=== PATIENT | female | born 1955 | race Caucasian/White ===

== ENCOUNTER → 2020-06-11 15:25 | Outpatient (CLI) | payer OTHER, SELFPAY ==
[2020-06-11 14:34] VITALS: BMI 32.5
[2020-06-11 16:50] LABS: Absolute Lymphocyte Count 2.09 X10^3/uL (0.83-4.51); Absolute Neutrophil Count 5.9 X10^3/uL (2.0-7.7); Basophil# 0.06 X10^3/uL; Basophil% 0.7 % (0-1); Eosinophil# 0.35 X10^3/uL; Eosinophils% 3.9 % (0-5); Hematocrit 45.7 % (37-47); Hemoglobin 15.8 g/dL (12.0-15.0); Lymphocyte # 2.09 X10^3/ul (4.0); Lymphocyte % 23.2 % (19-41); Mean Corp Hgb Conc 34.6 g/dL (32-36); Mean Corpuscular Hgb 32.2 pg (27.0-32.0); Mean Corpuscular Volume 93.1 fL (81-99); Mean Platelet Vol. 10.2 fl (6.2-12.0); Monocyte% 6.7 % (0-10); NRBC Flagged by Analyzer 0 % (0-5); Neutrophil # 5.87 X10^3/uL (2.7-7.7); Neutrophil % 65.3 % (47-70); Platelet Count 336 K/mm3 (150-450); RBC Distribution Width CV 12.7 % (11.6-14.6); RBC Distribution Width SD 43.5 fl (35.1-43.9); Red Blood Count 4.91 M/mm3 (4.2-5.4)
[2020-06-11 17:13] LABS: AST(SGOT) 22 U/L (15-37); Alanine Aminotransfer ALT/SGPT 38 U/L (13-56); Albumin, Serum 3.8 g/dL (3.2-5.0); Alkaline Phosphatase 82 U/L (45-117); Anion Gap 7 (5-15); BUN 12 mg/dL (7-18); BUN/Creat Ratio 14.2 RATIO (10-20); Calcium,Total 9.4 mg/dL (8.5-10.1); Chloride 105 mmol/L (98-107); Cholesterol 129 mg/dL (200); Creatinine, Serum 0.85 mg/dL (0.55-1.02); EST Glomerular Filtration Rate 72 mL/min (>60); Est Glom Filt Rate - Afr Amer 87 mL/min (>60); Globulin 3.8 g/dL (2.2-4.2); Glucose 87 mg/dL (74-106); High Density Lipoprotein 69 mg/dL; Potassium 3.8 mmol/L (3.5-5.1); Protein, Total 7.6 g/dL (6.4-8.2); Sodium Level 142 mmol/L (136-145); Triglycerides 81 mg/dL; Very Low Density Lipoprotein 16 mg/dL (5-40)
== END ==
PROVIDERS: PCP Internal Medicine; Referring Provider Internal Medicine; Visit Provider Internal Medicine
DX: E78.5 Hyperlipidemia, unspecified (principal); I10 Essential (primary) hypertension; E03.9 Hypothyroidism, unspecified
CPT/HCPCS: 36415; 80053; 80061; 84443; 85025

== ENCOUNTER → 2022-09-01 | Outpatient (CLI) | payer BC, MEDICARE, SELFPAY ==
[2022-09-01 12:39] LABS: Absolute Lymphocyte Count 1.18 X10^3/uL (0.83-4.51); Absolute Neutrophil Count 5.3 X10^3/uL (2.0-7.7); Basophil# 0.03 X10^3/uL; Basophil% 0.4 % (0-1); Eosinophil# 0.21 X10^3/uL; Eosinophils% 2.9 % (0-5); Hematocrit 49.9 % (37-47); Hemoglobin 16.1 g/dL (12.0-15.0); Lymphocyte # 1.18 X10^3/ul (0.83-4.51); Lymphocyte % 16.4 % (19-41); Mean Corp Hgb Conc 32.3 g/dL (32-36); Mean Corpuscular Hgb 31.1 pg (27.0-32.0); Mean Corpuscular Volume 96.3 fL (81-99); Mean Platelet Vol. 10.7 fl (6.2-12.0); Monocyte# 0.44 X10^3/uL; Monocyte% 6.1 % (0-10); NRBC Flagged by Analyzer 0 % (0-5); Neutrophil # 5.31 X10^3/uL (2.7-7.7); Neutrophil % 73.9 % (47-70); Platelet Count 328 K/mm3 (150-450); RBC Distribution Width CV 12.8 % (11.6-14.6); RBC Distribution Width SD 45.8 fl (35.1-43.9); Red Blood Count 5.18 M/mm3 (4.2-5.4); White Blood Count 7.2 K/mm3 (4.4-11.0)
[2022-09-01 13:11] LABS: AST(SGOT) 22 U/L (15-37); Alanine Aminotransfer ALT/SGPT 30 U/L (13-56); Albumin, Serum 3.8 g/dL (3.2-5.0); Alkaline Phosphatase 84 U/L (45-117); Anion Gap 7 (5-15); BUN 13 mg/dL (7-18); Calcium,Total 9.8 mg/dL (8.5-10.1); Chloride 105 mmol/L (98-107); Cholesterol 191 mg/dL (200); Creatinine, Serum 0.81 mg/dL (0.55-1.02); EST Glomerular Filtration Rate 75 mL/min (>60); Est Glom Filt Rate - Afr Amer 91 mL/min (>60); Glucose 104 mg/dL (74-106); High Density Lipoprotein 66 mg/dL; Potassium 3.9 mmol/L (3.5-5.1); Protein, Total 7.8 g/dL (6.4-8.2); Sodium Level 140 mmol/L (136-145); Thyroid Stim Hormone (TSH) 2.43 uIU/mL (0.358-3.74); Triglycerides 131 mg/dL; Very Low Density Lipoprotein 26 mg/dL (5-40)
== END | disposition home or self-care (01) ==
PROVIDERS: PCP Internal Medicine; Referring Provider Internal Medicine; Visit Provider Internal Medicine
DX: I10 Essential (primary) hypertension (principal); E03.9 Hypothyroidism, unspecified; M81.0 Age-related osteoporosis without current pathological fracture
CPT/HCPCS: 36415; 80053; 80061; 82306; 84443; 85025

== ENCOUNTER → 2022-11-14 | Outpatient (CLI) | payer BC, MEDICARE, SELFPAY ==
--- NOTE | 2022-11-14 16:16 | BI_ITS ---
MAMMOGRAPHY - BILATERAL SCREENING REASON FOR EXAM: Female, 67 years old. Routine annual screening examination. PERTINENT HISTORY: Aunts with breast cancer. TECHNIQUE: Digital bilateral breast alisha (3D mammographic acquisition) in the CC and MLO projections. 2-D mediolateral oblique (MLO) and craniocaudad (CC) views of both breasts were obtained. CAD: Full Field Digital Mammography with Computer Added Detection was performed. COMPARISON: Comparison is made with prior outside examination dated November 28, 2018. FINDINGS: Breast Composition: The breasts are heterogeneously dense, which may obscure small masses. There are no dominant masses or suspicious calcifications. Stable densely calcified nodule in the medial retroareolar region of the left breast. No other significant abnormalities are identified. There has been no significant change since the prior study. BI/SCRN MAMM (CAD)W/ALISHA BILAT IMPRESSION: Stable bilateral screening mammogram. Yearly follow-up mammogram recommended. (A) ASSESSMENT CATEGORY: BIRADS Category 2: Benign. A letter regarding these results will be sent to the patient by the facility within 30 days. Approximately 10% of breast cancers are not detected by mammography. A normal mammogram should not delay biopsy of a clinically suspicious abnormality. [id number] Electronically Signed: Dixon Kitchen MD at 9:15 EDT ,
== END | disposition home or self-care (01) ==
LOC: OPBI 16:14
PROVIDERS: PCP Internal Medicine; Referring Provider Internal Medicine; Visit Provider Internal Medicine
DX: Z12.31 Encounter for screening mammogram for malignant neoplasm of breast (principal)
CPT/HCPCS: 77063; 77067

== ENCOUNTER → 2023-01-24 | Outpatient (CLI) | payer MEDICARE, OTHER, SELFPAY ==
[2023-01-24 15:37] LABS: ALB/GLOB Ratio 1.1 RATIO (0.9-2.4); AST(SGOT) 21 U/L (15-37); Alanine Aminotransfer ALT/SGPT 26 U/L (13-56); Albumin, Serum 3.7 g/dL (3.2-5.0); Alkaline Phosphatase 75 U/L (45-117); Anion Gap 10 (5-15); BUN 9 mg/dL (7-18); BUN/Creat Ratio 11.6 RATIO (10-20); Chloride 105 mmol/L (98-107); Creatinine, Serum 0.78 mg/dL (0.55-1.02); EST Glomerular Filtration Rate 79 mL/min (>60); Est Glom Filt Rate - Afr Amer 96 mL/min (>60); Globulin 3.5 g/dL (2.2-4.2); Glucose 92 mg/dL (74-106); Potassium 3.6 mmol/L (3.5-5.1); Protein, Total 7.2 g/dL (6.4-8.2); Sodium Level 141 mmol/L (136-145); Thyroid Stim Hormone (TSH) 3.36 uIU/mL (0.358-3.74)
== END | disposition home or self-care (01) ==
LOC: BIMLAB 13:54
PROVIDERS: PCP Internal Medicine; Visit Provider Internal Medicine
DX: I10 Essential (primary) hypertension (principal); E03.9 Hypothyroidism, unspecified
CPT/HCPCS: 36415; 80053; 84443

== ENCOUNTER → 2023-10-03 | Outpatient (CLI) | payer MEDICARE, OTHER, SELFPAY ==
[2023-10-03 14:53] LABS: Absolute Lymphocyte Count 1.51 X10^3/uL (0.83-4.51); Absolute Neutrophil Count 5.1 X10^3/uL (2.0-7.7); Basophil# 0.05 X10^3/uL; Basophil% 0.7 % (0-1); Eosinophil# 0.42 X10^3/uL; Eosinophils% 5.5 % (0-5); Hematocrit 46.7 % (37-47); Hemoglobin 15.5 g/dL (12.0-15.0); Lymphocyte # 1.51 X10^3/ul (0.83-4.51); Lymphocyte % 19.9 % (19-41); Mean Corp Hgb Conc 33.2 g/dL (32-36); Mean Corpuscular Hgb 31.6 pg (27.0-32.0); Mean Corpuscular Volume 95.3 fL (81-99); Mean Platelet Vol. 10.2 fl (6.2-12.0); Monocyte# 0.46 X10^3/uL; Monocyte% 6.1 % (0-10); NRBC Flagged by Analyzer 0 % (0-5); Neutrophil # 5.11 X10^3/uL (2.7-7.7); Neutrophil % 67.5 % (47-70); Platelet Count 280 K/mm3 (150-450); RBC Distribution Width CV 12.8 % (11.6-14.6); RBC Distribution Width SD 44.7 fl (35.1-43.9); White Blood Count 7.6 K/mm3 (4.4-11.0)
[2023-10-03 17:01] LABS: ALB/GLOB Ratio 1.1 RATIO (0.9-2.4); AST(SGOT) 28 U/L (15-37); Alanine Aminotransfer ALT/SGPT 32 U/L (13-56); Albumin, Serum 3.8 g/dL (3.2-5.0); Alkaline Phosphatase 74 U/L (45-117); Anion Gap 6 (5-15); BUN 15 mg/dL (7-18); BUN/Creat Ratio 15.5 RATIO (10-20); Calcium,Total 9.1 mg/dL (8.5-10.1); Chloride 106 mmol/L (98-107); Cholesterol 148 mg/dL (200); Creatinine, Serum 0.96 mg/dL (0.55-1.02); EST Glomerular Filtration Rate 61 mL/min (>60); Est Glom Filt Rate - Afr Amer 74 mL/min (>60); Globulin 3.6 g/dL (2.2-4.2); Glucose 93 mg/dL (74-106); High Density Lipoprotein 78 mg/dL; Potassium 4.3 mmol/L (3.5-5.1); Protein, Total 7.4 g/dL (6.4-8.2); Sodium Level 140 mmol/L (136-145); Triglycerides 104 mg/dL; Very Low Density Lipoprotein 21 mg/dL (5-40)
== END | disposition home or self-care (01) ==
LOC: BIMLAB 13:01
PROVIDERS: PCP Internal Medicine; Visit Provider Internal Medicine
DX: I10 Essential (primary) hypertension (principal); E03.9 Hypothyroidism, unspecified; E78.5 Hyperlipidemia, unspecified
CPT/HCPCS: 36415; 80053; 80061; 84443; 85025

== ENCOUNTER → 2024-02-11 | Outpatient (CLI) | payer MEDICARE, OTHER, SELFPAY ==
[2024-02-11 12:18] LABS: Vitamin D,25 Hydroxy 38.4 ng/mL
[2024-02-11 12:32] LABS: Anion Gap 7 (5-15); BUN 11 mg/dL (7-18); BUN/Creat Ratio 12.4 RATIO (10-20); Calcium,Total 9.5 mg/dL (8.5-10.1); Chloride 106 mmol/L (98-107); Creatinine, Serum 0.88 mg/dL (0.55-1.02); EST Glomerular Filtration Rate 68 mL/min (>60); Est Glom Filt Rate - Afr Amer 82 mL/min (>60); Glucose 103 mg/dL (74-106); Potassium 4.1 mmol/L (3.5-5.1); Sodium Level 141 mmol/L (136-145); Thyroid Stim Hormone (TSH) 5.21 uIU/mL (0.358-3.74)
== END | disposition home or self-care (01) ==
LOC: BIMLAB 08:32
PROVIDERS: PCP Internal Medicine; Referring Provider Internal Medicine; Visit Provider Internal Medicine
DX: E03.9 Hypothyroidism, unspecified (principal); I10 Essential (primary) hypertension; M81.0 Age-related osteoporosis without current pathological fracture
CPT/HCPCS: 36415; 80048; 82306; 84443

== ENCOUNTER → 2024-02-27 | Outpatient (CLI) | payer MEDICARE, OTHER, SELFPAY ==
--- NOTE | 2024-02-27 14:49 | BI_ITS ---
MAMMOGRAPHY - BILATERAL SCREENING REASON FOR EXAM: Female, 68 years old. Routine annual screening examination. PERTINENT HISTORY: Aunts with breast cancer. TECHNIQUE: Digital bilateral breast alisha (3D mammographic acquisition) in the CC and MLO projections. 2-D mediolateral oblique (MLO) and craniocaudad (CC) views of both breasts were obtained. CAD: Full Field Digital Mammography with Computer Added Detection was performed. COMPARISON: Comparison is made with prior study of November 14, 2022. FINDINGS: Breast Composition: The breasts are heterogeneously dense, which may obscure small masses. There are no dominant masses or suspicious calcifications. Stable densely calcified nodule in the medial retroareolar region of the left breast. No other significant abnormalities are identified. There has been no significant change since the prior study. BI/SCRN MAMM (CAD)W/ALISHA BILAT IMPRESSION: Stable bilateral screening mammogram. Yearly follow-up mammogram recommended. (A) ASSESSMENT CATEGORY: BIRADS Category 2: Benign. A letter regarding these results will be sent to the patient by the facility within 30 days. Approximately 10% of breast cancers are not detected by mammography. A normal mammogram should not delay biopsy of a clinically suspicious abnormality. [id number] Electronically Signed: Dixon Kitchen MD at 15:36 EDT ,
--- NOTE | 2024-02-27 14:52 | BD_ITS ---
STUDY: DUAL ENERGY X-RAY ABSORPTIOMETRY / DXA REASON FOR EXAM: Female, 68 years old. Osteoporosis TECHNIQUE: Bone Mineral Density (BMD) measurements of lumbar spine and left hip were obtained. COMPARISON: None. FINDINGS: Lumbar Spine (L1-L4): g/cm2 (0.796) / T-score (-2.6) / Z-score (-0.6) Findings are suggestive of osteoporosis with a high fracture risk. Left Femur Total: g/cm2 (0.810) / T-score (-1.1) / Z-score (0.2) Left Femoral Neck: g/cm2 (0.644) / T-score (-1.8) / Z-score (-0.3) BD/Dexa Bone Density Study IMPRESSION: The patient is considered osteoporotic as outlined below according to World Per Organization (WHO) criteria with a high fracture risk. Reference Information: The T-score is the number of standard deviations above or below the standard which is normal for young adults at their peak bone mineral density. The World Health Organization (WHO) interprets the T-scores as follows: Above -1 Normal bone density Between -1 and -2.5 Osteopenia Equal to / or below -2.5 Osteoporosis As a practical clinical guideline, osteopenia may be graded as follows: Mild -1 through -1.5 Moderate -1.6 through -2.0 Severe -2.1 through -2.4 The Z-score is the number of standard deviations above or below age-matched controls. A Z-score of less than -1.5 would be considered abnormal. References: 1. NIH Osteoporosis and Related Bone Diseases www osteo.org 2. International Society for Clinical Densitometry www iscd.org 3. National Osteoporosis Foundation www nof.org Electronically Signed: Dixon Kitchen MD at 8:25 EDT ,
== END | disposition home or self-care (01) ==
LOC: OPBD 14:49
PROVIDERS: PCP Internal Medicine; Referring Provider Internal Medicine; Visit Provider Internal Medicine
DX: Z12.31 Encounter for screening mammogram for malignant neoplasm of breast (principal); M81.0 Age-related osteoporosis without current pathological fracture
CPT/HCPCS: 77063; 77067; 77080

== ENCOUNTER → 2024-04-25 | Outpatient (CLI) | payer MEDICARE, OTHER, MEDICAID, SELFPAY ==
--- OUTSIDE RECORDS SUMMARY | 2024-04-25 11:52 | XMS RPT_ITS | CCD ---
Author Organization [facility] InformFormerly [facility] Care Team Providers Care Stamps Or Coins Salesperson Name Role Phone Shanelle Horvath Unavailable Unavailable Mariangel Brewer III Unavailable Unavailable Mariangel Brweer Unavailable Unavailable Jack Faith Unavailable Unavailable SHADY GRECO Primary Care Unavailable TAWANDA ROSS, KELBY Alcantar Attending Unavailabl e Medications Completed/Discontinued Medications Medication Drug Class(es) Dates Sig (Normalized) Sig (Original) 200 actuat albuterol 0.09 mg/actuat metered dose inhaler (1 source) beta2-Adrenergic Agonist Start: 6 take 1-2 puff(s) by inhalation every four to six hours as needed Ventolin HFA 108 (90 Base) MCG/ACT Inhalation Aerosol Solution INHALE 1 TO 2 PUFFS EVERY 4 TO 6 HOURS NEEDED. Quantity: 1 Refills: 0 Shanelle Horvath MD Start : 07-Dec-2015 Active 18 GM Inhaler Centrum TABS (1 source) Vitamin C Centrum TABS Refills: 0 Active aspirin 81 mg oral tablet (1 source) Platelet Aggregation Inhibitor, Nonsteroidal Anti-inflammatory Drug Aspirin 81 MG TABS Refills: 0 Active benazepril hydrochloride 10 mg / hydroCHLOROthiazide 12.5 mg oral tablet (1 source) Thiazide Diuretic, Angiotensin Converting Enzyme Inhibitor Start: 6 take 1 tablet by mouth once daily Benazepril-hydro CHLOROthiazide 10-12.5 MG Oral Tablet TAKE 1 TABLET DAILY. Quantity: 90 Refills: 1 Raux III Mariangel BABNI Start : 18-Jan-2016 Active Calcium (1 source) Phosphate Binder, Calcium Calcium TABS Refills: 0 Active cycloSPORINE 0.5 mg/ml ophthalmic suspension (1 source) Calcineurin Inhibitor Immunosuppressant Start: 7 Restasis 0.05 % Ophthalmic Emulsion Quantity: 60 Refills: 0 Start : 05-Sep-2016 Active 120 actuat fluticasone propionate 0.11 mg/actuat metered dose inhaler (1 source) Corticosteroid Start: 6 Flovent HFA 110 MCG/ACT Inhalation Aerosol Quantity: 12 Refills: 0 Start : 14-Dec-2015 Active Tirosint CAPS (1 source) l-Thyroxine Tirosint CAPS Refills: 0 Active rosuvastatin calcium 10 mg oral tablet (1 source) HMG-CoA Reductase Inhibitor Start: 6 take 1 tablet by mouth at bedtime Rosuvastatin Calcium 10 MG Oral Tablet TAKE 1 TABLET AT BEDTIME. Quantity: 90 Refills: 1 Mariangel Brewer III, DO Start : 19-Jan-2016 Active Problems Active Problems Problem Classification Problem Date Documented Da te Episodic/Chronic Disorders of lipid metabolism (1 source) Hyperlipidemia; Translations: [Hyperlipidemia] Chronic Essential hypertension (1 source) Hypertensive disorder; Translations: [Hypertension] Chronic Genitourinary congenital anomalies (1 source) H/O: urinary anomaly; Translations: [History of urinary frequency] Episodic Genitourinary symptoms and ill-defined conditions (2 sources) Incontinence; Translations: [Urge incontinence of urine] Chronic Genitourinary symptoms and ill-defined conditions (3 sources) Urgent desire to urinate; Translations: [Increased frequency of urination] Episodic Malaise and fatigue (1 source) Fatigue; Translations: [Fatigue] Episodic Nutritional deficiencies (1 source) Vitamin D deficiency; Translations: [Vitamin D deficiency] Chronic Other bone disease and musculoskeletal deformities (1 source) Disorder of bone; Translations: [Disorder of bone density and structure, unspecified] Episodic Other diseases of bladder and urethra (1 source) Other neuromuscular dysfunction of bladder; 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, 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 Other diseases of bladder and urethra (1 source) Urethral hypermobility; 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] Episodic Other diseases of bladder and urethra (1 source) Urethral instability; Translations: [History of Urethral instability] Episodic Other upper respiratory infections (1 source) Chronic sinusitis; Translations: [Sinobronchitis] Chronic Thyroid disorders (1 source) Hypothyroidism; Translations: [History of Hypothyroidism, adult] Chronic Past or Other Problems Problem Classification Problem Date Documented Da te Episodic/Chronic Unclassified (1 source) Patient encounter status; Translations: [Visit for screening mammogram] NEGATED: Highlighted row has not occurred!Residual codes; unclassified (2 sources) Disease Episodic Results Test Name Value Interpretation Reference Range Facil ity XR FOOT MINIMUM 3 VIEWS LEFT on 01-08-2024 XR FOOT MINIMUM 3 VIEWS LEFT ORIGINAL EXAMINATION: THREE XRAY VIEWS OF THE LEFT FOOT 01/08/2024 11:42 am COMPARISON: None. HISTORY: ORDERING SYSTEM PROVIDED HISTORY: Reason for Exam: evaluation for pain/injury FINDINGS: There is no evidence of acute fracture. There is normal alignment of the tarsometatarsal joints. No acute joint abnormality. No focal osseous lesion. No focal soft tissue abnormality. IMPRESSION: No acute osseous abnormality. Interpreted by: Nleson Leon DO Preliminary Report By: Nelson Leon DO Electronically signed By Nelson Leon DO Dictated Date: 01/08/2024 11:51:36 AM Prelim Date: 01/08/2024 11:52:37 AM Sign Date: 01/08/2024 11:52:37 AM Ordering Provider: KELBY NEFF [facility] ([place]) CBCon 12-10-2019 Erythrocyte distribution width (RBC) [Ratio] 12.5 % Normal 11.5 - 14.5 [facility] Comment on above: Performed By: #### C BC #### [address] [address] Hematocrit (Bld) [Volume fraction] 45.8 % Normal 36.0 - 46.0 [facility] Comment on above: Performed By: #### C BC #### [address] [address] Hemoglobin (Bld) [Mass/Vol] 15.0 g/dL Normal 12.0 - 16.0 [facility] Comment on above: Performed By: #### C BC #### [address] [address] MCHC (RBC) [Mass/Vol] 32.8 g/dL Normal 32.0 - 36.0 [facility] Comment on above: Performed By: #### C BC #### [address] [address] MCV (RBC) [Entitic vol] 95 fL Normal 80 - 100 [facility] Comment on above: Performed By: #### C BC #### [address] [address] Platelets (Bld) [#/Vol] 322 10*3/uL Normal 150 - 450 [facility] Comment on above: Performed By: #### C BC #### [address] [address] RBC (Bld) [#/Vol] 4.83 x10E12/L Normal 4.00 - 5.20 [facility] Comment on above: Performed By: #### C BC #### [address] [address] WBC (Bld) [#/Vol] 11.2 10*3/uL Normal 4.4 - 11.3 [facility] Comment on above: Performed By: #### C BC #### [place] [address] COMPREHENSIVE PANELon 2019 Albumin [Mass/Vol] 4.1 g/dL Normal 3.4 - 5.0 [facility] Comment on above: Performed By: #### C MP #### [address] [address] ALP [Catalytic activity/Vol] 63 U/L Normal 33 - 136 [facility] Comment on above: Performed By: #### C MP #### [place] [address] ALT [Catalytic activity/Vol] 25 U/L Normal 7 - 45 [facility] Comment on above: Result Comment: Sophie ents treated with Sulfasalazine may generate falsely decreased results for ALT. Performed By: #### C MP #### [address] [address] Anion gap [Moles/Vol] 14 mmol/L Normal 10 - 20 [facility] Comment on above: Performed By: #### C MP #### [address] [address] AST [Catalytic activity/Vol] 24 U/L Normal 9 - 39 [facility] Comment on above: Performed By: #### C MP #### [address] [address] Bilirubin [Mass/Vol] 0.4 mg/dL Normal 0.0 - 1.2 [facility] Comment on above: Performed By: #### C MP #### [address] [address] Calcium [Mass/Vol] 9.3 mg/dL Normal 8.6 - 10.3 [facility] Comment on above: Performed By: #### C MP #### [address] [address] Chloride [Moles/Vol] 103 mmol/L Normal 98 - 107 [facility] Comment on above: Performed By: #### C MP #### [address] [address] Creatinine [Mass/Vol] 0.77 mg/dL Normal 0.50 - 1.05 [facility] Comment on above: Performed By: #### C MP #### [address] [address] GFR- AM. >60 Normal >60 [facility] Comment on above: Result Comment: CALC ULATIONS OF ESTIMATED GFR ARE PERFORMED USING THE MDRD STUDY EQUATION FOR THE IDMS-TRACEABLE CREATININE METHODS. CLIN CHEM 2007;53:766-72 Performed By: #### C MP #### [address] [address] GFR-NON AM. >60 Normal >60 [facility] Comment on above: Performed By: #### C MP #### [address] [address] Glucose [Mass/Vol] 85 mg/dL Normal 74 - 99 [facility] Comment on above: Performed By: #### C MP #### [address] [address] HCO3 (Bld) [Moles/Vol] 28 mmol/L Normal 21 - 32 [facility] Comment on above: Performed By: #### C MP #### [address] [address] Potassium [Moles/Vol] 4.0 mmol/L Normal 3.5 - 5.3 [facility] Comment on above: Performed By: #### C MP #### [address] [address] Protein [Mass/Vol] 6.6 g/dL Normal 6.4 - 8.2 [facility] Comment on above: Performed By: #### C MP #### [address] [address] Sodium [Moles/Vol] 141 mmol/L Normal 136 - 145 [facility] Comment on above: Performed By: #### C MP #### [address] [address] Urea nitrogen [Mass/Vol] 11 mg/dL Normal 6 - 23 [facility] Comment on above: Performed By: #### C MP #### [address] [address] [facility] 12-10-2019 Cholesterol [Mass/Vol] 134 mg/dL 0 - 199 [facility] Work Phone: Comment on above: . AGE DESIRABLE BORD LORI HIGH HIGH 0-19 Y 0 - 169 170 - 199 >/= 200 20-24 Y 0 - 189 190 - 224 >/= 225 >24 Y 0 - 199 200 - 239 >/= 240 All ranges are based on fasting samples. Specific therapeutic targets will vary based on patient-specific cardiac risk.. Pediatric guidelines reference:Pediatrics 2011, 128(S5). Adult guidelines reference: NCEP ATPIII Guidelines, MILAGROS 2001, 258:2486-97. Venipuncture immediately after or during the administration of Metamizole may lead to falsely low results. Testing should be performed immediately prior to Metamizole dosing. Cholesterol in HDL [Mass/Vol] 57.2 mg/dL [facility] Work Phone: Comment on above: . AGE VERY LOW LOW N ORMAL HIGH 0-19 Y < 35 < 40 40-45 ---- 20- 24 Y ---- < 40 >45 ---- >24 Y ---- < 40 40-60 >60. Hematologyon 12-10-2019 Hematocrit (Bld) [Volume fraction] 45.8 % See Below [facility] Work Phone: Comment on above: Reference Range: 36. 0 - 46.0 Hemoglobin (Bld) [Mass/Vol] 15.0 g/dL See Below [facility] Work Phone: Comment on above: Reference Range: 12. 0 - 16.0 MCV (RBC) [Entitic vol] 95 fL 80 - 100 [facility] Work Phone: Platelets (Bld) [#/Vol] 322 {x10E9/L} 150 - 450 [facility] Work Phone: RBC (Bld) [#/Vol] 4.83 {x10E12/L} See Below [facility] Work Phone: Comment on above: Reference Range: 4.0 0 - 5.20 WBC (Bld) [#/Vol] 11.2 {x10E9/L} 4.4 - 11.3 [facility] Work Phone: LIPID PANEL NON-FASTINGon Cholesterol [Mass/Vol] 134 mg/dL Normal 0 - 199 [facility] Comment on above: Result Comment: . AGE DESIRABLE BORDERLINE HIGH HIGH 0-19 Y 0 - 169 170 - 199 >/= 200 20-24 Y 0 - 189 190 - 224 >/= 225 >24 Y 0 - 199 200 - 239 >/= 240 All ranges are based on fasting samples. Specific therapeutic targets will vary based on patient-specific cardiac risk. . Pediatric guidelines reference:Pediatrics 2011, 128(S5). Adult guidelines reference: NCEP ATPIII Guidelines, MILAGROS 2001, 258:2486-97 . Venipuncture immediately after or during the administration of Metamizole may lead to falsely low results. Testing should be performed immediately prior to Metamizole dosing. Performed By: #### L IPIN #### [address] [address] Cholesterol in HDL [Mass/Vol] 57.2 mg/dL Normal [facility] Comment on above: Result Comment: . AGE VERY LOW LOW NORMAL HIGH 0-19 Y < 35 < 40 40-45 ---- 20-24 Y ---- < 40 >45 ---- >24 Y ---- < 40 40-60 >60 . Performed By: #### L IPIN #### [address] [address] Cholesterol.total/C holesterol in HDL [Mass ratio] 2.3 {ratio} Normal [facility] Comment on above: Result Comment: REF VALUES DESIRABLE < 3.4 HIGH RISK > 5.0 Performed By: #### L IPIN #### [address] [address] NON-HDL CHOLESTEROL 77 mg/dL Normal [facility] Comment on above: Result Comment: AGE DESIRABLE BORDERLINE HIGH HIGH VERY HIGH 0-19 Y 0 - 119 120 - 144 >/= 145 >/= 160 20-24 Y 0 - 149 150 - 189 >/= 190 ---- >24 Y 30 MG/DL ABOVE LDL CHOLESTEROL GOAL . Performed By: #### L IPIN #### [address] [address] Metabolic Panelon 12-10-2019 ALP [Catalytic activity/Vol] 63 U/L 33 - 136 [facility] Work Phone: Anion gap [Moles/Vol] 14 mmol/L 10 - 20 [facility] Work Phone: Bilirubin [Mass/Vol] 0.4 mg/dL 0.0 - 1.2 [facility] Work Phone: Calcium [Mass/Vol] 9.3 mg/dL 8.6 - 10.3 [facility] Work Phone: Chloride [Moles/Vol] 103 mmol/L 98 - 107 [facility] Work Phone: CO2 [Moles/Vol] 28 mmol/L 21 - 32 [facility] Work Phone: Creatinine [Mass/Vol] 0.77 mg/dL See Below [facility] Work Phone: Comment on above: Reference Range: 0.5 0 - 1.05 Glucose [Mass/Vol] 85 mg/dL 74 - 99 [facility] Work Phone: Potassium [Moles/Vol] 4.0 mmol/L 3.5 - 5.3 [facility] Work Phone: Protein [Mass/Vol] 6.6 g/dL 6.4 - 8.2 [facility] Work Phone: Sodium [Moles/Vol] 141 mmol/L 136 - 145 [facility] Work Phone: Urea nitrogen [Mass/Vol] 11 mg/dL 6 - 23 [facility] Work Phone: Otheron 12-10-2019 Albumin BCP dye [Mass/Vol] 4.1 g/dL 3.4 - 5.0 [facility] Work Phone: ALT With P-5'-P [Catalytic activity/Vol] 25 U/L 7 - 45 [facility] Work Phone: Comment on above: Patients treated wit h Sulfasalazine may generate falsely decreased results for ALT. AST With P-5'-P [Catalytic activity/Vol] 24 U/L 9 - 39 [facility] Work Phone: Cholesterol non HDL [Mass/Vol] 77 mg/dL [facility] Work Phone: Comment on above: AGE DESIRABLE BORDER LINE HIGH HIGH VERY HIGH 0-19 Y 0 - 119 120 - 144 >/= 145 >/= 160 20-24 Y 0 - 149 150 - 189 >/= 190 ---- >24 Y 30 MG/DL ABOVE LDL CHOLESTEROL GOAL. Cholesterol.total/C holesterol in HDL [Mass ratio] 2.3 {ratio} [facility] Work Phone: Comment on above: REF VALUESDESIRABLE < 3.4HIGH RISK > 5.0 Erythrocyte distribution width (RBC) [Ratio] 12.5 % See Below [facility] Work Phone: Comment on above: Reference Range: 11. 5 - 14.5 MCHC (RBC) [Mass/Vol] 32.8 g/dL See Below [facility] Work Phone: Comment on above: Reference Range: 32. 0 - 36.0 >60 >60 [facility] Work Phone: Comment on above: CALCULATIONS OF DORITA MATED GFR ARE PERFORMED USING THE MDRD STUDY EQUATION FOR THE IDMS-TRACEABLE CREATININE METHODS. CLIN CHEM 2007;53:766-72 VITAMIN D, 25-HYDROXYon VITAMIN D, 25-HYDROXY 57 ng/mL Normal [facility] Comment on above: Result Comment: . DEFICIENCY: < 20 NG/ML INSUFFICIENCY: 20-29 NG/ML SUFFICIENCY: 30-100 NG/ML THIS ASSAY ACCURATELY QUANTIFIES THE SUM OF VITAMIN D3, 25-HYDROXY AND VIT D2,25-HYDROXY. Performed By: #### V TDOH #### [address] [address] Vitamin D 25-Hydroxyon 12-09 Calcidiol [Mass/Vol] 57 ng/mL [facility] Work Phone: Comment on above: .DEFICIENCY: < 20 NG /MLINSUFFICIENCY: 20-29 NG/MLSUFFICIENCY: 30-100 NG/MLTHIS ASSAY ACCURATELY QUANTIFIES THE SUM OFVITAMIN D3, 25-HYDROXY AND VIT D2,25-HYDROXY. BMPon 03-06-2019 Anion gap [Moles/Vol] 13.0 mmol/L Normal 5.0-19.0 [facility] [place] [place] Bun/CretRatio 16.2 Normal [facility] [place] [place] Calcium [Mass/Vol] 9.2 mg/dL Normal 8.1-10.1 [facility] Chloride [Moles/Vol] 100 mmol/L Normal 98-107 [facility] [place] [place] CO2 [Moles/Vol] 24 mmol/L Normal 22-32 [facility] [place] [place] Creatinine [Mass/Vol] 0.74 mg/dL Normal 0.60-1.30 [facility] [place] [place] Glucose [Mass/Vol] 107 mg/dL High 70-100 [facility] Osmolality-Calc 274 mOsm/kg Normal [facility] [place] [place] Potassium [Moles/Vol] 4.0 mmol/L Normal 3.4-5.1 [facility] [place] [place] Sodium [Moles/Vol] 137 mmol/L Normal 136-144 [facility] Urea nitrogen [Mass/Vol] 12 mg/dL Normal 8-26 [facility] [place] [place] CBCon 03-06-2019 Erythrocyte distribution width (RBC) [Ratio] 13.3 % Normal 11.4-16.0 [facility] [place] [place] Hematocrit (Bld) [Volume fraction] 47.0 % High 34.7-44.9 [facility] [place] [place] Hemoglobin (Bld) [Mass/Vol] 16.1 g/dL High 11.3-15.6 [facility] [place] [place] MCH (RBC) [Entitic mass] 32.0 pg Normal 26.5-33.0 [facility] [place] [place] MCHC (RBC) [Mass/Vol] 34.3 g/dL Normal 32.6-36.0 [facility] [place] [place] MCV (RBC) [Entitic vol] 93.2 fL Normal 80.0-100.0 [facility] [place] [place] Mean Plt Vol 7.9 fL Normal 7.2-10.3 [facility] [place] [place] Platelets (Bld) [#/Vol] 346 10*3/uL Normal 144-400 [facility] [place] [place] RBC (Bld) [#/Vol] 5.05 x10E12/L Normal 3.78-5.45 [facility] WBC (Bld) [#/Vol] 8.1 10*3/uL Normal 3.5-11.5 [facility] LDL Calculatedon 03-06-2019 Cholesterol in LDL [Mass/Vol] 44 mg/dL Normal [facility] [place] [place] Comment on above: Result Comment: Calculated LDL is unreliable when Triglyceride result is greater than 400. SGOTon 03-06-2019 AST [Catalytic activity/Vol] 25 U/L Normal 15-41 [facility] [place] [place] SGPTon 03-06-2019 ALT [Catalytic activity/Vol] 23 U/L Normal 14-63 [facility] [place] [place] TSHon 03-06-2019 TSH Qn 1.50 uIU/mL Normal 0.34-5.60 [facility] [place] [place] ZLipidon 03-06-2019 Cholesterol [Mass/Vol] 129 mg/dL Normal 0-200 [facility] [place] [place] Cholesterol in HDL [Mass/Vol] 62 mg/dL Normal [facility] [place] [place] Comment on above: Result Comment: HDL Cholesterol mg/dL: LDL Cholesterol mg/dL: High Risk: < 40 <100 Optimal Low Risk: >60 100 - 129 Near or above Optimal 130 - 159 Borderline High >160 High Triglyceride [Mass/Vol] 115 mg/dL Normal 0-149 [facility] [place] [place] Comment on above: Result Comment: Borderline High 150-199 mg/dL High >199 mg/dL STR/MAMMO SCRN DIGIT BILon 0 11-29-2018 Bilirubin [Mass/Vol] ADDENDUM 1 Patient Name: MIAH IYER ADDENDUM: The asymmetry in the left breast can be identified on a 03/11/2015 mammogram consistent with benign fibroglandular density. Category: 1 - Negative. Recommendation: Continued age appropriate mammography. Dictated by: Electronically Signed by: Alexy Rodriguez Electronically Signed on: 12/20/2018 1:55 PM INITIAL REPORT Patient Name: MIAH IYER STUDY: STR/MAMMO SCRN DIGIT CODEY; 11/28/2018 3:10 pm INDICATION: Screening. COMPARISON: 06/07/2017 and 05/04/2016 ACCESSION NUMBER(S): [id number] ORDERING CLINICIAN: MARIANGEL BREWER FINDINGS: The breasts are heterogeneously dense which may obscure small masses. The left breast has developed an asymmetry on the mediolateral oblique view superior to the nipple in the middle 3rd. Otherwise no suspicious masses or calcifications are identified. This study was interpreted with CAD. Markers: [place]- skin lesion; triangle- palpable abnormality IMPRESSION: The left breast has developed an asymmetry on the mediolateral oblique view; left breast diagnostic mammography and possible left breast ultrasound are recommended. BI-RADS CATEGORY: Category: 0 - Incomplete; Need Additional Imaging Evaluation and/or Prior Mammograms for Comparison. Recommendation: Left breast diagnostic mammography and possible left breast ultrasound. Dictated by: Electronically Signed by: Alexy Rodriguez Electronically Signed on: 11/29/2018 2:[address] [facility] STR/DEXA BONE DENSITY STDon 11-28-2018 STR/DEXA BONE DENSITY STD Patient Name: MIAH IYER STUDY: STR/DEXA BONE DENSITY STD; 11/28/2018 3:10 pm INDICATION: SCREENING. Evaluate for osteopenia/osteoporos is, COMPARISON: 03/11/2015 ACCESSION NUMBER(S): [id number] ORDERING CLINICIAN: MARIANGEL BREWER FINDINGS: Standard measurements were obtained utilizing an [employer] X-ray Absorptiometry bone densitometer. Data obtained includes planar bone density measurements over the left hip and lumbar spine. Comparison of measured data and standardized mean data for a young adult population (when peak bone mass occurs) results in a T score. This represents the number of standard deviations above or below the mean of a young adult population. Comparison of measured data to standards from an age-adjusted population similarly yields a Z score. Left femoral neck Bone density: 0.724 g/cm2 T score: -1.1 which confers a 2.7 fold increased risk of fracture compared to young healthy adult. There has been a 5.3% decrease in bone mineral density since previous study. Z Score: 0.2 Lumbar Spine (L1-4) Bone density: 0.879 g/cm2 T Score: -1.5 overall and -2.6 at L4 which would confer a 6.1 fold increased risk of fracture compared to young healthy adults. There has been a 3.4% decrease in bone mineral density since previous study. Z Score: 0.0 World Health Organization (WHO) criteria defines normal bone density as that which is less than 1 standard deviation below the mean of a young adult population. Osteopenia is defined as a measured bone density that is between 1 and 2.5 standard deviations below the mean of a young adult population. Osteoporosis is defined as a measured bone density that is greater than or equal to 2.5 standard deviations below the mean of a young adult population. IMPRESSION: According to World Health Organization criteria, bone mineral density of the left femoral neck is osteopenic and lumbar spine is overall osteopenic with osteoporosis at L4. The patient is at increased risk for fracture. Overall there has been a decrease in bone mineral density since previous study as above Dictated by: Electronically Signed by: Braden Dumas Electronically Signed on: 11/28/2018 7:[address] [facility] BMPon 09-02-2018 Anion gap [Moles/Vol] 9.0 mmol/L Normal 5.0-19.0 [facility] [place] [place] Bun/CretRatio 13.2 Normal [facility] [place] [place] Calcium [Mass/Vol] 8.7 mg/dL Normal 8.1-10.1 [facility] Chloride [Moles/Vol] 102 mmol/L Normal 98-107 [facility] [place] [place] CO2 [Moles/Vol] 26 mmol/L Normal 22-32 [facility] [place] [place] Creatinine [Mass/Vol] 0.76 mg/dL Normal 0.60-1.30 [facility] [place] [place] Glucose [Mass/Vol] 104 mg/dL High 70-100 [facility] Osmolality-Calc 273 mOsm/kg Normal [facility] [place] [place] Potassium [Moles/Vol] 3.8 mmol/L Normal 3.4-5.1 [facility] [place] [place] Sodium [Moles/Vol] 137 mmol/L Normal 136-144 [facility] Urea nitrogen [Mass/Vol] 10 mg/dL Normal 8-26 [facility] [place] [place] CBCon 09-02-2018 Erythrocyte distribution width (RBC) [Ratio] 13.4 % Normal 11.4-16.0 [facility] [place], [place] Hematocrit (Bld) [Volume fraction] 44.8 % Normal 34.7-44.9 [facility] [place], [place] Hemoglobin (Bld) [Mass/Vol] 15.0 g/dL Normal 11.3-15.6 [facility] [place], [place] MCH (RBC) [Entitic mass] 31.5 pg Normal 26.5-33.0 [facility] [place], [place] MCHC (RBC) [Mass/Vol] 33.5 g/dL Normal 32.6-36.0 [facility] [place], [place] MCV (RBC) [Entitic vol] 94.0 fL Normal 80.0-100.0 [facility] [place], [place] Mean Plt Vol 8.0 fL Normal 7.2-10.3 [facility] [place], [place] Platelets (Bld) [#/Vol] 298 10*3/uL Normal 144-400 [facility] [place], [place] RBC (Bld) [#/Vol] 4.77 x10E12/L Normal 3.78-5.45 [facility] [place] WBC (Bld) [#/Vol] 8.4 10*3/uL Normal 3.5-11.5 [facility] [place] LDL Calculatedon 09-02-2018 Cholesterol in LDL [Mass/Vol] 52 mg/dL Normal [facility] [place], [place] Comment on above: Result Comment: Calculated LDL is unreliable when Triglyceride result is greater than 400. SGPTon 09-02-2018 ALT [Catalytic activity/Vol] 21 U/L Normal 14-63 [facility] [place], [place] TSHon 09-02-2018 TSH Qn 4.09 uIU/mL Normal 0.34-5.60 [facility] [place], [place] Vit D 25OHon 09-02-2018 Vit D 25-OH 54 ng/mL Normal [facility] [place], [place] Comment on above: Result Comment: Deficient: Less than 20 ng/mL Insufficient: 20 to less than 30 ng/mL Sufficient: 30 to 100 ng/mL Upper Safety Limit: Greater than 100 ng/mL ZLipidon 09-02-2018 Cholesterol [Mass/Vol] 132 mg/dL Normal 0-200 [facility] [place], [place] Cholesterol in HDL [Mass/Vol] 64 mg/dL Normal [facility] [place], [place] Comment on above: Result Comment: HDL Cholesterol mg/dL: LDL Cholesterol mg/dL: High Risk: < 40 <100 Optimal Low Risk: >60 100 - 129 Near or above Optimal 130 - 159 Borderline High >160 High Triglyceride [Mass/Vol] 81 mg/dL Normal 0-149 [facility] [place], [place] Comment on above: Result Comment: Borderline High 150-199 mg/dL High >199 mg/dL Vital Signs Date Time Vital Sign Value Performing Clinician Faci litjamey 12-18-2019 11:22-0400 BMI (Body Mass Index) 32.5 kg/m2 [facility] Work Phone: 12-18-2019 11:22-0400 Body weight 78.02 kg Shanelle Horvath [facility] Work Phone: 12-18-2019 11:22-0400 BP Diastolic 76 mm[Hg] [facility]ath [facility] Work Phone: 12-18-2019 11:22-0400 BP Systolic 108 mm[Hg] Shan[facility] Horvath [facility] Work Phone: 12-18-2019 11:22-0400 BSA (Body Surface Area) 1.77 m2 [facility] Work Phone: 12-18-2019 11:22-0400 Height 154.94 cm Shanelle Christensen [facility] Work Phone: 12-18-2019 11:22-0400 Pulse (Heart Rate) 86 /min Shanelle Christensen P [facility] Work Phone: 12-18-2019 11:22-0400 Respiratory Rate 16 /min Shanelle Christensen [facility] Work Phone: Encounters Encounter Date Encounter Type Care Provider Facility Start: 01-08-2024 End: 01-08-2024 ambulatory [employer] [facility] VIELKA LEAHYDER Facility:A Start: 12-18-2019 Patient encounter procedure [facility] Work Phone: Start: 03-11-2019 Patient encounter procedure [facility] Work Phone: Start: 11-17-2017 Ambulatory Facility:[id number] Start: 11-09-2017 Ambulatory Facility:[id number] Start: 08-06-2017 Ambulatory Facility:[id number] Start: 06-07-2017 Ambulatory Facility:[id number] Start: 01-17-2017 Ambulatory Facility:[id number] Procedures Date Procedure Procedure Detail Performing Clinician Start: 12-18-2019 Follow-up visit Start: 12-17-2019 CBC W Auto Different ial panel - Blood Shanelle Horvath Start: 12-17-2019 Comprehensive metabo lic 2000 panel Shanelle Horvath Start: 12-17-2019 LIPID PANEL NON-FASTING Shanelle Horvath History of Bladder Surgery K atherine O'Nayak Hysterectomy Shanelle Villalba'Isa a Payers Date Payer Category Payer Medicare [id number] 2024 Unknown [id number] 1955 Unknown [id number] Unknown [id number] Social History Date Type Detail Facility Assertion Tobacco smoking consumption unknown (finding) [facility] Work Phone: Functional Status Date Assessment Result Facility NEGATED: Highlighted row Functional performance Functional status health issues are not documented Disease [facility] Work Phone: Mental Status Date Assessment Result Facility NEGATED: Highlighted row Cognitive function [Interpretation] Cognitive status health issues are not documented Disease [facility] Work Phone: Summary Purpose Family History No Family History Records FoundUnknown Family Member Name Dates Details Family history of malignant neoplasm of breast(V16.3, Z80.3) Comments:Other Status:Active Family history of Colon canc er(153.9, C18.9) Comments:Other Status:Active Family history of diabetes m ellitus(V18.0, Z83.3) Comments:Other Status:Active Family history of cardiac di sorder(V17.49, Z82.49) Comments:Other Status:Active Mother Name Dates Details No pertinent family history( V49.89, Z78.9) Status:Active Advance Directives No Advanced Directives Records FoundNo Advanced Directives Records FoundNo Advanced Directives Records FoundNo Advanced Directives Records FoundNo Advanced Directives Records Found Additional Source Comments INFORMATION SOURCE (unrecogn ized section and content) DATE CREATED AUTHOR 12/26/2017 [facility] DATE CREATED AUTHOR AUTHOR'S ORGANIZ ATION 07[place]04/[place] [facility] [place] CREATED AUTHOR AUTHOR'S ORGANIZ ATION 12/12/2019 [facility] DATE CREATED AUTHOR AUTHOR'S ORGANIZ ATION 12/18/2019 [employer] DATE CREATED AUTHOR AUTHOR'S ORGANIZ ATION 01/23/2024 [facility] FOR RECORDS PERTAINING TO PATIENTS WHO ARE OR HAVE BEEN ENROLLED IN A CHEMICAL DEPENDENCY/SUBSTANCEABUSE PROGRAM, SOME INFORMATION MAY BE OMITTED. This clinical summary was aggregated from multiple sources. Caution should be exercised in using it in the provision of clinical care. This summary normalizes information from multiple sources, and as a consequence, information in this document may materially change the coding, format and clinical context of patient data. In addition, data may be omitted in some cases. CLINICAL DECISIONS SHOULD BE BASED ON THE PRIMARY CLINICAL RECORDS. [facility] [employer] [facility]. provides no warranty or guarantee of the accuracy or completeness of information in this document.
[2024-04-25 15:45] LABS: Thyroid Stim Hormone (TSH) 0.468 uIU/mL (0.358-3.740)
== END | disposition home or self-care (01) ==
PROVIDERS: PCP Internal Medicine; Referring Provider Internal Medicine; Visit Provider Internal Medicine
DX: E03.9 Hypothyroidism, unspecified (principal)
CPT/HCPCS: 36415; 84443

== ENCOUNTER → 2024-07-17 | Outpatient (CLI) | payer MEDICARE, OTHER, MEDICAID, SELFPAY ==
[2024-07-17 16:47] LABS: Absolute Lymphocyte Count 1.63 X10^3/uL (0.83-4.51); Basophil# 0.06 X10^3/uL; Basophil% 0.7 % (0-1); Eosinophils% 3.5 % (0-5); Hematocrit 45.5 % (37-47); Hemoglobin 15.3 g/dL (12.0-15.0); Lymphocyte # 1.63 X10^3/ul (0.83-4.51); Mean Corp Hgb Conc 33.6 g/dL (32-36); Mean Corpuscular Hgb 30.5 pg (27.0-32.0); Mean Corpuscular Volume 90.8 fL (81-99); Mean Platelet Vol. 10.1 fl (6.2-12.0); Monocyte# 0.56 X10^3/uL; Monocyte% 6.5 % (0-10); NRBC Flagged by Analyzer 0 % (0-5); Neutrophil # 6.03 X10^3/uL (2.7-7.7); Neutrophil % 70.1 % (47-70); Platelet Count 294 K/mm3 (150-450); RBC Distribution Width CV 12.7 % (11.6-14.6); RBC Distribution Width SD 41.5 fl (35.1-43.9); Red Blood Count 5.01 M/mm3 (4.2-5.4); White Blood Count 8.6 K/mm3 (4.4-11.0)
[2024-07-17 17:17] LABS: AST(SGOT) 24 U/L (15-37); Alanine Aminotransfer ALT/SGPT 31 U/L (13-56); Albumin, Serum 3.7 g/dL (3.2-5.0); Alkaline Phosphatase 58 U/L (45-117); Anion Gap 6 (5-15); BUN 10 mg/dL (7-18); BUN/Creat Ratio 13.1 RATIO (10-20); Calcium,Total 8.8 mg/dL (8.5-10.1); Chloride 104 mmol/L (98-107); Cholesterol 134 mg/dL (200); Creatinine, Serum 0.76 mg/dL (0.55-1.02); EST Glomerular Filtration Rate 81 mL/min (>60); Est Glom Filt Rate - Afr Amer 97 mL/min (>60); Globulin 3.6 g/dL (2.2-4.2); Glucose 97 mg/dL (74-106); High Density Lipoprotein 72 mg/dL; Potassium 3.7 mmol/L (3.5-5.1); Protein, Total 7.3 g/dL (6.4-8.2); Sodium Level 138 mmol/L (136-145); Triglycerides 94 mg/dL; Very Low Density Lipoprotein 19 mg/dL (5-40)
== END | disposition home or self-care (01) ==
PROVIDERS: PCP Internal Medicine; Referring Provider Internal Medicine; Visit Provider Internal Medicine
DX: E03.9 Hypothyroidism, unspecified (principal); E78.5 Hyperlipidemia, unspecified
CPT/HCPCS: 36415; 80053; 80061; 84443; 85025

== ENCOUNTER → 2024-10-24 | Outpatient (CLI) | payer MEDICARE, OTHER, MEDICAID, SELFPAY ==
[2024-10-24 12:39] LABS: Absolute Lymphocyte Count 1.65 X10^3/uL (0.83-4.51); Absolute Neutrophil Count 5.2 X10^3/uL (2.0-7.7); Basophil# 0.07 X10^3/uL; Basophil% 0.9 % (0-1); Eosinophil# 0.36 X10^3/uL; Eosinophils% 4.5 % (0-5); Hematocrit 45.8 % (37-47); Hemoglobin 15.9 g/dL (12.0-15.0); Lymphocyte # 1.65 X10^3/ul (0.83-4.51); Lymphocyte % 20.8 % (19-41); Mean Corp Hgb Conc 34.7 g/dL (32-36); Mean Corpuscular Hgb 31.4 pg (27.0-32.0); Mean Corpuscular Volume 90.3 fL (81-99); Mean Platelet Vol. 10.6 fl (6.2-12.0); Monocyte# 0.67 X10^3/uL; Monocyte% 8.4 % (0-10); NRBC Flagged by Analyzer 0 % (0-5); Neutrophil # 5.18 X10^3/uL (2.7-7.7); Neutrophil % 65.3 % (47-70); Platelet Count 319 K/mm3 (150-450); RBC Distribution Width SD 42.3 fl (35.1-43.9); Red Blood Count 5.07 M/mm3 (4.2-5.4); White Blood Count 7.9 K/mm3 (4.4-11.0)
[2024-10-24 13:38] LABS: Anion Gap 13 (5-15); BUN 13 mg/dL (4-19); Calcium,Total 9.5 mg/dL (7.6-11.0); Carbon Dioxide 23.3 mmol/L (21.0-32.0); Chloride 101 mmol/L (98-108); EST Glomerular Filtration Rate 70 (>60); Glucose 105 mg/dL (70-99); Sodium Level 137 mmol/L (133-145)
[2024-10-27 12:07] LABS: Hemoglobin A1c 5.5 % (<=5.6)
== END | disposition home or self-care (01) ==
LOC: BIMLAB 10:19
PROVIDERS: PCP Internal Medicine; Referring Provider Internal Medicine; Visit Provider Internal Medicine
DX: E03.9 Hypothyroidism, unspecified (principal); R73.9 Hyperglycemia, unspecified; I10 Essential (primary) hypertension
CPT/HCPCS: 36415; 80048; 83036; 84443; 85025

== ENCOUNTER → 2025-02-27 | Outpatient (CLI) | payer MEDICARE, MEDICAID, SELFPAY ==
--- NOTE | 2025-02-27 14:30 | BI_ITS ---
EXAM: SCRN MAMM (CAD)W/ALISHA BILAT DATE: 02/27/2025 CLINICAL HISTORY: F, Age 69 y/o , BREAST CANCER SCREENING TECHNIQUE: SCRN MAMM (CAD)W/ALISHA BILAT COMPARISON: Prior exam(s) were compared FINDINGS: TISSUE DENSITY: The breasts are heterogeneously dense, which may obscure small masses. Bilateral Breast Mammographic Findings: No suspicious masses, calcifications or other abnormalities are identified. BI/SCRN MAMM (CAD)W/ALISHA BILAT IMPRESSION: No mammographic evidence of malignancy in either breast. OVERALL FINAL ASSESSMENT BI-RADS 1: NEGATIVE. RECOMMENDATION: Routine annual follow-up in 1 Year A letter with findings and recommendations will be mailed to the patient. Reading Location: [id number]
== END | disposition home or self-care (01) ==
LOC: OPBI 14:12
PROVIDERS: PCP Internal Medicine; Referring Provider Internal Medicine; Visit Provider Internal Medicine
DX: Z12.31 Encounter for screening mammogram for malignant neoplasm of breast (principal)
CPT/HCPCS: 77063; 77067

== ENCOUNTER → 2025-04-20 | Outpatient (CLI) | payer MEDICARE, MEDICAID, SELFPAY ==
[2025-04-20 11:04] LABS: Hematocrit 44.1 % (37-47); Hemoglobin 15.2 g/dL (12.0-15.0); Immature Granulocytes Count 0.020 X10^3/uL (0.0-0.0); Mean Corp Hgb Conc 34.5 g/dL (32-36); Mean Corpuscular Volume 92.1 fL (81-99); Mean Platelet Vol. 10.0 fl (6.2-12.0); NRBC Flagged by Analyzer 0 % (0-5); Platelet Count 289 K/mm3 (150-450); RBC Distribution Width CV 12.9 % (11.6-14.6); RBC Distribution Width SD 43.6 fl (35.1-43.9); Red Blood Count 4.79 M/mm3 (4.2-5.4); White Blood Count 7.2 K/mm3 (4.4-11.0)
[2025-04-20 11:34] LABS: AST(SGOT) 31 U/L (<=31); Alanine Aminotransfer ALT/SGPT 24 U/L (<=34); Albumin, Serum 4.2 g/dL (3.4-4.8); Alkaline Phosphatase 56 U/L (35-104); Anion Gap 10 (5-15); BUN 12 mg/dL (4-19); BUN/Creat Ratio 14.8 RATIO (10-20); Calcium,Total 9.5 mg/dL (7.6-11.0); Carbon Dioxide 26.6 mmol/L (21.0-32.0); Chloride 105 mmol/L (98-108); Globulin 2.7 g/dL (2.2-4.2); Glucose 107 mg/dL (70-99); Potassium 4.4 mmol/L (3.3-5.1); Vitamin D,25 Hydroxy 35.2 ng/mL (30-100)
== END | disposition home or self-care (01) ==
PROVIDERS: PCP Internal Medicine; Referring Provider Internal Medicine; Visit Provider Internal Medicine
DX: E03.9 Hypothyroidism, unspecified (principal); M81.0 Age-related osteoporosis without current pathological fracture
CPT/HCPCS: 36415; 80053; 82306; 84443; 85025